=== PATIENT | male | born 1970 | race Caucasian/White ===

== ENCOUNTER 2018-09-21 06:26 | Emergency (ER) | payer BC, SELFPAY ==
[2018-09-21 06:28] VITALS: BP 164/94; PULSE 111; RESP 20; TEMP 36.4; O2SAT 97; BMI 32.6
--- NOTE | 2018-09-21 06:41 | ED.DCSUM_ITS ---
History of Present Illness Chief Complaint: Sore Throat Narrative: Patient stated the last few days he has had a sore throat. He feels like there is swelling in the back of his throat. He has been using [id number]. Current severity is mild. He does not feel sick otherwise. Denies any lymph node swelling. Denies any upper respiratory symptoms. Past Medical History - Allergies and Home Meds Allergies/Adverse Reactions: Allergies No Known Allergies Allergy (Verified 09/21/18 06:28) Primary Care Physician: Care Physician,No Primary [Primary Care Provider] - Prior records reviewed: Yes Past Medical History: None Surgical History: noncontributory Lives: Spouse/ Significant Other Smoking Status: Never smoker Alcohol: None Drugs: None Review of Systems General: Denies: Chills, Fever, Sweats Eyes: Denies: Visual changes - bilaterally, Diplopia ENT: Reports: Sore throat. Denies: Rhinorrhea Cardiovascular: Denies: Chest pain, Palpitations Respiratory: Denies: Dyspnea, Cough, Dyspnea on exertion Gastrointestinal: Denies: Abdominal pain, Nausea, Vomiting, Diarrhea, Melena, Hematochezia Genitourinary: Denies: Dysuria, Hematuria, Frequency Musculoskeletal: Denies: Back pain, Extremity Pain Skin: Denies: Rash, Wounds Neurological: Denies: Headache, Weakness, Numbness Physical Exam Vital Signs/Narrative: Vital Signs Temp Pulse Resp BP Pulse Ox 09/21/18 06:28 97.6 F L 111 H 20 H 164/94 H 97 General: Well nourished, Well developed, No Acute Distress Head: Normocephalic, Atraumatic Eyes: Perrl, EOMI ENT: Moist mucous membranes, No rhinorrhea, - - Positive uvulitis outer in nature. Tonsils normal. Mild swelling. Neck: Supple, Nontender Cardiovascular: Regular rate, Regular rhythm, No murmurs Respiratory: No distress, CTA bilaterally, Chest nontender Abdomen: Soft, Nontender, Nondistended, Normal bowel sounds Back: Nontender, Normal Inspection Extremities: Nontender, No edema Skin: Normal color, No rash Neurological: Alert, Oriented x3, Cranial nerves II-XII grossly intact, Normal Strength, Normal Sensation Psychological: Normal affect, Normal Mood Diagnostic/Tx/Re-eval - Medical Decision Making Patient given dose of Decadron to help with the swelling. Will continue Tylenol ibuprofen. Given amoxicillin for his uvulitis. I do not feel he is toxic. I do not feel he needs admitted for IV antibiotics. We will continue fluids. We will follow-up as an outpatient and return if he worsens ED Disposition - Plan for ED Patient: Disposition: [facility] Diagnosis: Uvulitis Instructions: ED Uvulitis Prescriptions: Amoxicillin 1,000 mg PO BID 7 Days #30 tab Referrals: José Miguel Olea DO [NON CLINICAL AFFILIATE] -
[2018-09-21 06:43] VITALS: BP 131/96; PULSE 104; RESP 18; O2SAT 94
[2018-09-21] MEDS: AMOXICILLIN 500 MG CAPSULE 1000 MG PO (06:43)
== END 2018-09-21 06:53 | disposition home or self-care (01) ==
LOC: ED 06:48
PROVIDERS: Emergency Provider Emergency Medicine
DX: K12.2 Cellulitis and abscess of mouth (principal)
CPT/HCPCS: 99283

== ENCOUNTER 2018-10-12 05:42 | Emergency (ER) | payer BC, SELFPAY ==
[2018-10-12 05:43] VITALS: BP 149/95; PULSE 103; RESP 20; TEMP 36.9; O2SAT 99; BMI 32.2
[2018-10-12 05:46] VITALS: BP 149/95; PULSE 103; RESP 20; TEMP 36.9; O2SAT 99
--- NOTE | 2018-10-12 05:51 | CT_ITS ---
STUDY: CT SOFT TISSUE NECK WITH CONTRAST REASON FOR EXAM: Male, 47 years old. Difficulty swallowing RADIATION DOSAGE (If Supplied By Facility): CTDIvol = ( 21.14 ) mGy, DLP = ( 659.89 ) mGycm TECHNIQUE: The patient was scanned in a multi-detector CT scanner. High resolution transaxial imaging was performed following intravenous administration of 100 IV Isovue 300. Sagittal and coronal images were reconstructed. Individualized dose optimization techniques were used for this CT. COMPARISON: None. FINDINGS: Normal bilateral parotid glands. Normal bilateral highway painter helper spaces. Normal bilateral parapharyngeal spaces. Normal bilateral carotid spaces. Normal bilateral sublingual and submandibular glands and spaces. Normal visualized nasopharynx. Normal retropharyngeal space. Normal perivertebral space. Enlargement of the bilateral faucial tonsils without intraductal or retrotonsillar collection or abscess. No airway narrowing.. The visualized tongue, tongue base and oropharynx are normal. The visualized cervical lymph nodes (levels I-) are within normal size limits, and maintain normal morphology. There is no demonstrated solid or cystic mass lesion. There is no abnormal contrast enhancement. Normal epiglottis, bilateral vallecula and hypopharynx. The pre-epiglottic and paraglottic adipose spaces are normal. Normal visualized bilateral piriform sinuses, aryepiglottic folds, vocal cords, and arytenoid-cricoid articulations. Normal subglottic trachea. Normal bilateral lobes of the thyroid gland. Normal visualized pulmonary apices. Mild cortical thinning along the external cortex adjacent to the apex of the first left mandibular molar tooth #14. There is adjacent carious disease. Complete mandibular dentition, absent maxillary dentition. Normal visualized paranasal sinuses. The bilateral mastoid air cells are clear. Normal visualized cervical spine. CT/Soft Tissue Neck WITH Contrast IMPRESSION: Bilateral tonsillar enlargement without abscess or collection likely inflammation. Dental disease as above. Electronically Signed: Esther Concepcion MD at 6:48 EDT , Service support ,
--- NOTE | 2018-10-12 05:55 | ED.VISSUMM ---
- ER Visit Summary Date of Service: 10/12/18 Chief Complaint: Sore throat History of Present Illness: The patient is a 47 M presenting with sore throat. Patient states this started yesterday. He felt like his throat was swelling. He had similar complaints 3 weeks ago and was treated with amoxicillin and steroids for uvulitis. His symptoms improved. He states his girlfriend lives in [place] and both times his symptoms started after visiting her. He denies any known irritants. No fever. No other complaints. Physical Examination: Vitals are stable. Patient is afebrile. Alert no acute distress. HEENT exam pharyngeal erythema, tonsillar exudate, swollen uvula Neck is supple. Lungs are clear and equal bilaterally. Heart is regular rate and rhythm. Extremities are unremarkable. Skin is warm and dry. Remainder of exam is unremarkable. Emergency Department Course and Treatment: Patient was given Solu-Medrol. CT soft tissue neck shows bilateral tonsillar enlargement without abscess or collection likely inflammation. Patient feels improved in the ED. He is able to swallow. He is given prescriptions for amoxicillin, prednisone. Discussed with Dr. Moore. He recommends prescription for EpiPen. Patient will follow-up in the office. Advised return to ED if worsening complaints. Disposition: Discharge home Impression: Uvulitis This note was generated with [employer] dictation software. It may contain incorrect words, spelling, and punctuation that were not noted in review of the chart prior to signing ED Disposition - Plan for ED Patient: Instructions: ED Uvulitis Prescriptions: Epi Pen (for allergic rxn) 0.3 mg IM X1 PRN #2 syringe PRN Reason: Anaphylaxis Prednisone [Deltasone] 40 mg PO DAILY #10 tablet Amoxicillin 500 mg PO TID #30 tablet Referrals: Oumar Moore MD [STAFF PHYSICIAN] - Garcia Langston MD [Primary Care Provider] -
[2018-10-12] MEDS: MethylPREDNISolone 125 MG/2 ML Vial IV (06:14)
--- NOTE | 2018-10-12 07:12 | ED.DEP ---
ED Disposition - Plan for ED Patient: Instructions: ED Uvulitis Prescriptions: Epi Pen (for allergic rxn) 0.3 mg IM X1 PRN #2 syringe PRN Reason: Anaphylaxis Prednisone [Deltasone] 40 mg PO DAILY #10 tablet Amoxicillin 500 mg PO TID #30 tablet Referrals: Garcia Langston MD [Primary Care Provider] - Oumar Moore MD [STAFF PHYSICIAN] -
[2018-10-12] MEDS: AMOXICILLIN 500 MG CAPSULE PO (07:22)
[2018-10-12 07:23] VITALS: BP 123/77; PULSE 62; RESP 15; O2SAT 98
== END 2018-10-12 07:29 | disposition home or self-care (01) ==
LOC: ED 06:00
PROVIDERS: Emergency Provider Emergency Medicine; Family Provider Family Medicine; PCP Family Medicine
DX: K12.2 Cellulitis and abscess of mouth (principal); Z72.0 Tobacco use
CPT/HCPCS: 70491; 99284; Q9967; A4216

== ENCOUNTER → 2019-08-08 10:39 | Outpatient (CLI) | payer BC, SELFPAY ==
[2019-08-08 08:54] VITALS: BMI 32.2
[2019-08-08 13:44] LABS: Chlamydia Trachomatis by PCR Negative (Negative); Neisserai gonorrhoeae by PCR Negative (Negative)
[2019-08-08 13:45] LABS: Probe Check PASS; Sample Adequacy Control PASS; Specimen Processing Control PASS
== END ==
PROVIDERS: PCP Family Medicine; Referring Provider Physician Assistant; Visit Provider Physician Assistant
DX: R30.0 Dysuria (principal)
CPT/HCPCS: 87086; 87255; 87491; 87591